=== PATIENT | male | born 1955 | race African-American/Black ===

== ENCOUNTER 2017-09-12 14:58 | Observation (INO) | payer BC, MEDICARE ==
[~2017-09-12 14:58] MED LIST: Iopamidol 370 76% 100 ML VIAL ONE
[2017-09-12 15:50] LABS: #Eosinphils 0.1 thou/uL (0.0-0.7); #Lymphocytes 1.4 thou/uL (1.20-3.40); #Monocytes 0.4 thou/uL (0.11-0.59); #Neutrophils 2.6 thou/uL (1.40-6.50); %Eosinophils 2.1 % (0.0-10.0); %Lymphocytes 31.4 % (21.0-51.0); %Monocytes 8.4 % (0.0-10.0); %Neutrophils 57.1 % (42.0-75.0); Hemoglobin 13.6 g/dL (14.0-18.0); Mean Corpuscular HGB CONC 32.7 g/dL (32.0-36.0); Mean Corpuscular Hemoglobin 30.6 pg (27.0-31.0); Mean Corpuscular Volume 93.5 fl (80.0-94.0); Mean Platelet Volume 8.2 fL (7.4-10.4); Platelet Count 193 thou/uL (130-400); Red Blood Cell (RBC) Count 4.44 mill/uL (4.70-6.10); White Blood Cell (WBC) Count 4.5 thou/uL (4.8-10.8)
[2017-09-12 15:55] LABS: INR-International Normal Ratio 1.1; PTT 29.5 SEC (22.9-36.1); Prothrombin Time 14.7 SEC (12.0-14.7)
[2017-09-12 16:13] LABS: ALT (SGPT) 13 U/L (8-55); AST (SGOT) 14 U/L (5-34); Albumin 3.8 g/dL (3.5-5.0); Alkaline Phosphatase 65 U/L (40-150); Anion Gap 9 mmol/L (10-20); BUN (Urea Nitrogen) 12 mg/dL (8.4-25.7); Bilirubin, Total 0.5 mg/dL (0.2-1.2); Calc. Creatinine Clearance 0 mL/min (70-130); Carbon Dioxide 24 mmol/L (22-29); Chloride 109 mmol/L (98-107); Estimated GFR-MDRD 71; Globulin 2.7 g/dL (2.4-3.5); Glucose 94 mg/dL (70-105); Protein, Total 6.5 g/dL (6.0-8.3); Sodium 138 mmol/L (136-145)
[2017-09-12 16:14] LABS: Troponin I Less than 0.010 ng/mL (< 0.028)
[2017-09-12] MEDS ORDERED: Morphine 5 MG/ML SYRINGE SLOW IVP PRN (16:18)
[2017-09-12] MEDS ORDERED: Nitroglycerin 0.4 MG TAB (25 Tab Bottle) SL PRN (16:18)
[2017-09-12] MEDS ORDERED: Acetaminophen 325 MG TAB PO PRN (16:20)
[2017-09-12] MEDS ORDERED: traMADol HCl 50 MG TAB ONE (17:16)
[2017-09-12] MEDS ORDERED: traMADol HCl 50 MG TAB PO PRN (17:34)
[2017-09-12] MEDS ORDERED: Heparin 10,000 UNITS/ 10 ML VIAL ONE (18:00)
[2017-09-12 18:35] VITALS: BMI 26.2
--- NOTE | 2017-09-12 20:14 | HP ---
PRIMARY CARE PHYSICIAN: Dr. Cornell Terry. PRESENTING COMPLAINT: Chest pain. HISTORY OF PRESENT ILLNESS: This is a pleasant 61-year-old male with a past medical history of scleroderma, GERD, and osteoarthritis, who presents to the emergency room with chest pain that started this morning. It was substernal, pressure/burning, with aches on his left side. It lasted less than 5 minutes, occurred at rest and resolves spontaneously. Due to continued symptoms, he decided to present to the emergency room. He denies nausea, shortness of breath , palpitations, PND, orthopnea, or lower extremity edema. He has no abdominal or urinary symptoms. On arrival to the ER, an EKG was done, which was unchanged. Cardiology consulted and patient was taken to the OR for a left heart catheterization. Patient tolerated the procedure well and he was then admitted for observation overnight. On interview today, he reports no symptoms and chest pain has completely resolved following procedure. PAST MEDICAL HISTORY: Scleroderma, GERD, osteoarthritis. PAST SURGICAL HISTORY: None. FAMILY AND SOCIAL HISTORY: Reviewed and noncontributory. No family history of CAD or early cardiac deaths. He is a former smoker and rarely drinks alcohol ( about few times a year.) No use of illicit drugs. ALLERGIES: None. HOME MEDICATIONS: Pravastatin 10 mg daily, omeprazole 40 mg daily, aspirin 81 mg daily. REVIEW OF SYSTEMS: Constitutional: Negative for fever or chills. HEENT: Negative for changes in vision, congestion. Cardiovascular: Positive for chest pain. See HPI. Respiratory: Negative for cough, shortness of breath. GI: Negative. Musculoskeletal: Negative. Skin: Denies rashes or lesions. Neurologic: Denies headaches, blurry vision, or loss of consciousness. Hematology: Denies easy bruisability. PHYSICAL EXAMINATION: CONSTITUTIONAL: Not in acute distress, lying comfortable in bed. HEENT: Normocephalic, atraumatic, EOMI, PERRLA. NECK: Supple. Has full range of movements. RESPIRATORY: Chest vesicular breathing bilaterally, no wheezing, or rales. CVS: Regular rate and rhythm. S1, S2 only. No murmurs, rubs, or gallops. ABDOMEN: Bowel sounds positive, nontender, nondistended, no organomegaly. MUSCULOSKELETAL: Contracted bilateral upper extremities (sequelae of scleroderma.) SKIN: Has sclerodermatic features of tight skin on the extremities and on the face. PSYCHIATRIC: Normal mood and affect. LABORATORY DATA: CBC and CMP are likely unremarkable. ASSESSMENT/PLAN: 1. Chest Pain: Patient is status post catheterization and tolerated procedure well. He is currently chest pain free. We will place the patient on sublingual nitroglycerin p.r.n., IV morphine p.r.n. for chest pain. He will also be continued on aspirin and Plavix will also be started. We will follow up with Cardiology for further recommendations. Monitor on tele overnight, trend troponin. Obtain repeat EKG. 2. Scleroderma. Continue his home medications. MTDD
[2017-09-12 20:35] LABS: Troponin I 0.011 ng/mL (< 0.028)
[2017-09-12] MEDS: Famotidine 20 MG TAB PO SCH (20:38)
[2017-09-12] MEDS ORDERED: Heparin 5,000 UNITS/ML VIAL SC SCH (21:00)
[2017-09-12] MEDS ORDERED: Atorvastatin Calcium 40 MG TAB PO SCH (21:00)
--- NOTE | 2017-09-13 02:36 | CON ---
DATE OF CONSULTATION: 09/12/2017 REASON FOR CONSULTATION: Chest pain and abnormal EKG. HISTORY OF PRESENT ILLNESS: Mr. Jourdan Marquez is a 61-year-old patient of Dr. Billy Powell. T he patient states he was feeling well up until yesterday but had some left arm pain, it was bothersom e to him. The patient is feeling okay, but early this morning, he had some substernal chest pain. He got up ou t of bed, he thought it probably was an esophageal reflux. He got up and eventually drinks coffee an d felt better and he thought he better to get checked out; however, went to the [facility]. EKG was done there. An ambulance was called and the initial diagnosis was thought to be an acute myocardial infarction. He was brought to the hospital here, he was not having chest pain on arrival here, but a STEMI alert had been called and the processes had been activated. Therefore, he was oneyda en to the cardiac catheterization lab was found to have no obstructive coronary artery disease and he is feeling fine now. PAST MEDICAL HISTORY: History of syncope about a year ago and had a monitoring showing long pauses, second-degree block, consideration for pacemaker was given, in fact pacemaker was advised, but he dec lined. He has not had any further episodes similar to that. Otherwise, the patient has been doing well other than an intermittent reflux. He is not sure if he t ook a medicine for his stomach acid yesterday. PAST MEDICAL HISTORY: 1. Esophageal reflux. 2. Scleroderma. 3. Osteoarthritis. FAMILY HISTORY: Negative for heart disease at a young age. ALLERGIES: None. MEDICATION: Crestor 10 mg daily, aspirin 81 mg a day. REVIEW OF SYSTEMS: Constitutional: No significant weight gain or loss. Vision: No changes. Heari ng: No changes. Pulmonary: No cough or wheezing. Gastrointestinal: No nausea, vomiting, diarrhea . Skin: No rashes. Neurologic: No unilateral weakness or numbness. Psychiatric: No unusual depr ession or anxiety. Hematologic: No unusual bruising. Genitourinary: No burning with urination. PHYSICAL EXAMINATION: GENERAL: This is a pleasant 61-year-old -[place] gentleman in no distress. VITAL SIGNS: Blood pressure 132/73, pulse 52 regular. HEENT: Sclerae nonicteric. Mouth and mucous membranes moist. NECK: Supple, no lymphadenopathy. LUNGS: Clear, no wheezing, rales, or rhonchi. CARDIAC: Normal S1, normal S2. There is no murmur, rub, or gallop. ABDOMEN: Soft, nontender. EXTREMITIES: No clubbing, cyanosis, or edema. IMAGING STUDIES: 1. A cardiac catheterization was done today revealing left main normal. 2. LAD minimal luminal irregularities. 3. Circumflex obtuse marginal one and continuation of the circumflex approximately 10% plaque. 4. Right coronary, right dominant no flow limiting disease. Ejection fraction was normal. LABORATORY FINDINGS: Troponin levels were normal. The first was less than 0.010, the follow up is 0 .11 and negative being less than 0.028. EKG normal sinus rhythm, some ST and T-wave changes, unchang ed from previous EKGs, which I was able to brief in the office. ASSESSMENT: 1. Chest pain, noncardiac, probably gastrointestinal related to reflux. 2. EKG is unchanged from previous EKGs. PLAN: The patient can be released home tomorrow to follow up with Dr. Powell as an outpatient. T he patient is active and I do not think the subcutaneous Lovenox at this point.
[2017-09-13 05:42] LABS: #Basophils 0.1 thou/uL (0.0-0.2); #Eosinphils 0.1 thou/uL (0.0-0.7); #Lymphocytes 1.5 thou/uL (1.20-3.40); #Monocytes 0.5 thou/uL (0.11-0.59); #Neutrophils 2.7 thou/uL (1.40-6.50); %Basophils 1.1 % (0.0-1.0); %Eosinophils 1.5 % (0.0-10.0); %Lymphocytes 31.3 % (21.0-51.0); %Monocytes 10.3 % (0.0-10.0); %Neutrophils 55.8 % (42.0-75.0); Hemoglobin 13.4 g/dL (14.0-18.0); Mean Corpuscular HGB CONC 32.3 g/dL (32.0-36.0); Mean Corpuscular Hemoglobin 30.4 pg (27.0-31.0); Mean Corpuscular Volume 94.1 fl (80.0-94.0); Mean Platelet Volume 8.5 fL (7.4-10.4); Platelet Count 183 thou/uL (130-400); RBC Distribution Width 12.1 % (11.5-14.5); White Blood Cell (WBC) Count 4.9 thou/uL (4.8-10.8)
[2017-09-13 05:54] LABS: Anion Gap 8 mmol/L (10-20); BUN (Urea Nitrogen) 12 mg/dL (8.4-25.7); Calc. Creatinine Clearance 71 mL/min (70-130); Carbon Dioxide 27 mmol/L (22-29); Chloride 108 mmol/L (98-107); Estimated GFR-MDRD 66; Glucose 83 mg/dL (70-105); Magnesium 2.2 mg/dL (1.6-2.6); Potassium 4.2 mmol/L (3.5-5.1); Sodium 139 mmol/L (136-145)
[2017-09-13] MEDS: Famotidine 20 MG TAB PO SCH (07:35)
[2017-09-13 08:36] VITALS: BP 115/64; TEMP 98.5
[2017-09-13] MEDS ORDERED: Clopidogrel Bisulfate 75 MG TAB PO SCH (09:00)
[2017-09-13] MEDS ORDERED: Aspirin 325 MG TAB PO SCH (09:00)
--- NOTE | 2017-09-14 01:16 | DIS ---
DATE OF ADMISSION: 09/12/2017 DATE OF DISCHARGE: 09/13/2017 CONDITION AT DISCHARGE: Stable and improved. DISCHARGE DIAGNOSIS: Chest pain. MEDICATIONS ON DISCHARGE: Aspirin 81 mg daily Esomeprazole 40 mg p.o. q.a.m. daily Rouvastatin 10 mg p.o. daily. HISTORY OF PRESENT ILLNESS/HOSPITAL COURSE: This is a pleasant 61-year-old male with a history of scleroderma, GERD, and arthritis who presented to the emergency room with chest pain that started on the day of admission. It was substernal, described as pressure like/burning with aches on his left side, lasting less than 5 minutes. It occurred at rest and resolved spontaneously. Due to the continued nature of his symptoms, he decided to go to the emergency room. At the ER, he had an EKG, which was read as a STEMI, a protocol was then activated. Cardiology consulted and patient was taken straight to the OR for left heart catheterization. He tolerated the procedure well and results showed normal coronary arteries. He remained asymptomatic. On review by Cardiology, it was felt that his pain was likely due to GERD and less likely from cardiac pathology. Troponins remained negative. The patient was no longer symptomatic and he was discharged without incident. PHYSICAL EXAMINATION: He was examined on the day of discharge, vital signs were stable CONSTITUTIONAL: Not in acute distress, lying comfortably in bed. HEENT: Normocephalic, atraumatic, EOMI, PERRLA, not pale, anicteric. NECK: Supple, with full range of movement. RESPIRATORY: Vesicular breath sounds bilaterally. No wheezing, no rales. CVS: Regular rate and rhythm. S1, S2 only. No murmurs, rubs, or gallops. ABDOMEN: Bowel sounds positive, nontender, nondistended, no organomegaly. MUSCULOSKELETAL: He has contracted upper extremities (sequelae of scleroderma). SKIN: No rashes or lesions. Sclerae dramatic fissures on the face and extremities. PSYCHIATRIC: Normal mood and affect. LABORATORY DATA: Labs at patient's baseline and unremarkable. CONSULTATIONS: Cardiology. PROCEDURES: Left heart catheterization. DIET: Regular diet. ACTIVITIES: To resume as tolerated. He is to follow up with his primary care physician within 1 week of discharge. Discharged to Home. Total time of discharge is 65 minutes. [place]
== END 2017-09-13 09:29 | disposition home or self-care (01) ==
LOC: ERS 14:58 → 2SW 18:08
PROVIDERS: ADMIT Internal Medicine; ATTEND Internal Medicine
PROC: 4A023N7 Measurement of Cardiac Sampling and Pressure, Left Heart, Percutaneous Approach (ICD-10-PCS; principal; 2017-09-12)
PROC: B2111ZZ Fluoroscopy of Multiple Coronary Arteries using Low Osmolar Contrast (ICD-10-PCS; 2017-09-12)
PROC: B2151ZZ Fluoroscopy of Left Heart using Low Osmolar Contrast (ICD-10-PCS; 2017-09-12)
DX: R07.2 Precordial pain (principal); M34.9 Systemic sclerosis, unspecified; K21.9 Gastro-esophageal reflux disease without esophagitis; M19.90 Unspecified osteoarthritis, unspecified site; Z79.82 Long term (current) use of aspirin; Z79.899 Other long term (current) drug therapy; Z87.891 Personal history of nicotine dependence
CPT/HCPCS: 36415; 76942; 80048; 80053; 82553; 83735; 84484; 85025; 85347; 85610; 85730; 93005; 93010; 93458; 99152; 99153; A4216; C1769; G0378; J1644; J2250; J3010

== ENCOUNTER 2022-04-17 14:28 | Outpatient (CLI) | payer MEDICARE, BC | END 2022-04-17 14:29 | disposition home or self-care (01) | LOC: BICRAD 14:28 | PROVIDERS: ATTEND Internal Medicine Rheumatology | DX: M54.50 Low back pain, unspecified (principal); R06.02 Shortness of breath; M47.816 Spondylosis without myelopathy or radiculopathy, lumbar region; M43.16 Spondylolisthesis, lumbar region | CPT/HCPCS: 71046; 72100 ==

== ENCOUNTER 2025-04-14 09:10 | Outpatient (CLI) | payer MEDICARE | END 2025-04-14 09:11 | disposition home or self-care (01) | LOC: CT 09:10 | PROVIDERS: ATTEND Family Medicine | DX: R10.32 Left lower quadrant pain (principal) | CPT/HCPCS: 74177 ==